=== PATIENT | male | born 1995 | race Caucasian/White ===

== ENCOUNTER 2021-07-29 09:34 | Day surgery (SDC) | payer MEDICARE, MEDICAID ==
[~2021-07-29 09:34] MED LIST: Midazolam 1 MG/ML 2 ML SDV ONE; Propofol 200 MG/20 ML SDV ONE; fentaNYL 100 MCG/2 ML SDV ONE
[2021-07-29] MEDS ORDERED: Sodium Chloride 0.9% 1,000 ML IV SCH (10:30)
[2021-07-29 14:29] VITALS: BP 102/74; PULSE 71
== END 2021-07-29 14:30 | disposition home or self-care (01) ==
LOC: JP.SDS 09:34
PROVIDERS: ATTEND Surgery
DX: K20.90 Esophagitis, unspecified without bleeding (principal)
CPT/HCPCS: J2250; J2704; J3010; J7030

== ENCOUNTER 2022-06-17 10:22 | Emergency (ER) | payer MEDICARE, MEDICAID ==
[2022-06-17] MEDS ORDERED: Ondansetron 4 MG/2 ML SDV IVPUSH ONE (11:23)
[2022-06-17] MEDS ORDERED: Sodium Chloride 0.9% 1,000 ML IV SCH (11:30)
[2022-06-17 12:30] VITALS: BP 123/68; PULSE 99
== END 2022-06-17 12:36 | disposition home or self-care (01) ==
LOC: JP.ED 10:22
DX: A08.4 Viral intestinal infection, unspecified (principal); K21.9 Gastro-esophageal reflux disease without esophagitis; M19.90 Unspecified osteoarthritis, unspecified site; Z79.899 Other long term (current) drug therapy
CPT/HCPCS: 36415; 80048; 83690; 85025; 96361; 96374; 99284; J2405; J7030; 99283